=== PATIENT | male | born 1970 | race American Indian/Alaskan Native ===

== ENCOUNTER 2021-04-05 16:09 | Emergency (ER) | payer SELFPAY ==
[2021-04-05 17:13] VITALS: BP 135/83
--- NOTE | 2021-04-05 17:47 | Emergency Department Report ---
ED ENT HPI - General Chief complaint: Earache Stated complaint: EAR PAIN Time Seen by Provider: 04/05/21 17:37 Source: patient Mode of arrival: Ambulatory Limitations: No Limitations - History of Present Illness Initial comments: 51-year-old male presents to the ER today with complaints of right ear pain and irritation. Patient states that symptoms started about 2 days ago. Patient states that he is concerned that he may have something in his right ear but he is not exactly sure. He reports some mild muffled hearing. He denies any bleeding or drainage from the ear. He denies any injury to the ear. He reports no additional symptoms at this time. MD complaint: ear pain, other (irritation and muffled hearing ) -: days(s) (2) - Related Data Previous Rx's Medication Instructions Recorded Last Taken Type Amoxicillin [Trimox CAP] 500 mg PO Q8H #30 capsule 04/05/21 Unknown Rx Allergies Allergy/AdvReac Type Severity Reaction Status Date / Time aspirin Allergy Dizziness Verified 04/05/21 17:21 ED Dental HPI - General Chief complaint: Earache Stated complaint: EAR PAIN Time Seen by Provider: 04/05/21 17:37 Source: patient Mode of arrival: Ambulatory Limitations: No Limitations - Related Data Previous Rx's Medication Instructions Recorded Last Taken Type Amoxicillin [Trimox CAP] 500 mg PO Q8H #30 capsule 04/05/21 Unknown Rx Allergies Allergy/AdvReac Type Severity Reaction Status Date / Time aspirin Allergy Dizziness Verified 04/05/21 17:21 ED Review of Systems ROS: Stated complaint: EAR PAIN Other details as noted in HPI Comment: All other systems reviewed and negative ENT: ear pain Respiratory: denies: cough, shortness of breath, SOB with exertion, SOB at rest, wheezing Cardiovascular: denies: chest pain, palpitations Gastrointestinal: denies: abdominal pain, nausea, diarrhea Genitourinary: denies: urgency, dysuria Musculoskeletal: denies: back pain, joint swelling, arthralgia Skin: denies: rash, lesions, change in color, change in hair/nails, pruritus Neurological: denies: headache, weakness, numbness, paresthesias, confusion, abnormal gait, vertigo Psychiatric: denies: anxiety, depression, auditory hallucinations, visual hallucinations, homicidal thoughts, suicidal thoughts Hematological/Lymphatic: denies: easy bleeding, easy bruising ED Past Medical Hx - Past Medical History Previous Medical History?: No - Surgical History Past Surgical History?: No - Social History Smoking Status: Current Every Day Smoker Substance Use Type: Alcohol - Medications Home Medications: Home Medications Medication Instructions Recorded Confirmed Last Taken Type Amoxicillin [Trimox CAP] 500 mg PO Q8H #30 capsule 04/05/21 Unknown Rx ED Physical Exam - General Limitations: No Limitations General appearance: alert, in no apparent distress - Head Head exam: Present: atraumatic, normocephalic, normal inspection - Eye Eye exam: Present: normal appearance, PERRL, EOMI Pupils: Present: normal accommodation - Expanded ENT Exam Expanded TM/Canal exam: Foreign Body: Right TM (black rubber object noted in right ear canal) - Respiratory Respiratory exam: Present: normal lung sounds bilaterally. Absent: respiratory distress - Cardiovascular Cardiovascular Exam: Present: regular rate. Absent: normal rhythm, normal heart sounds - Neurological Exam Neurological exam: Present: alert, oriented X3, CN II-XII intact, normal gait - Psychiatric Psychiatric exam: Present: normal affect, normal mood - Skin Skin exam: Present: intact ED Course Vital Signs 04/05/21 16:56 Temperature 98.9 F Pulse Rate 85 Respiratory 18 Rate Blood Pressure 135/83 O2 Sat by Pulse 95 Oximetry - Foreign Body Removal Ear Location: ear canal (R) Foreign Body Suspected: plastic bead/other plasti Foreign Body Removed: yes Foreign Body Removal Technique: forceps Tympanic Membrane Intact: Yes (but moderately erythematous, no perforation) Patient Tolerated Procedure: well Complications: none Critical care attestation.: If time is entered above; I have spent that time in minutes in the direct care of this critically ill patient, excluding procedure time. ED Disposition Clinical Impression: Foreign body in ear, Otitis media Disposition: 01 HOME / SELF CARE / HOMELESS Is pt being admited?: No Does the pt Need Aspirin: No Condition: Stable Instructions: Otitis Media, Adult, [id number], Ear Foreign Body, [id number] Additional Instructions: Recommend he take the amoxicillin as prescribed until completion. You can take Tylenol and ibuprofen as needed for pain. Follow-up closely with your primary care doctor. Return to the ER if your symptoms changes or worsens in any way. Prescriptions: Amoxicillin [Trimox CAP] 500 mg PO Q8H #30 capsule Referrals: [facility] [place] [Provider Group] - 3-5 Days Time of Disposition: 17:46
== END 2021-04-05 17:50 | disposition home or self-care (01) ==
LOC: ED 16:09
DX: S00.451A Superficial foreign body of right ear, initial encounter (principal); H66.91 Otitis media, unspecified, right ear; F17.200 Nicotine dependence, unspecified, uncomplicated; Z88.6 Allergy status to analgesic agent; Z72.89 Other problems related to lifestyle; Z79.899 Other long term (current) drug therapy; X58.XXXA Exposure to other specified factors, initial encounter; Y93.89 Activity, other specified; Y92.89 Other specified places as the place of occurrence of the external cause; Y99.8 Other external cause status
CPT/HCPCS: 99282